=== PATIENT | female | born 1970 ===

== ENCOUNTER 2020-06-29 05:40 | Day surgery (SDC) | payer OTHER ==
[~2020-06-29 05:40] MED LIST: ADDERALL XR 2020 MG PO
== END 2020-06-29 10:40 | disposition home or self-care (01) ==
LOC: CIR.AMB 05:40
PROVIDERS: ATTEND Obstetrics & Gynecology Gynecologic Oncology
DX: D06.7 Carcinoma in situ of other parts of cervix (principal); Z20.822 Contact with and (suspected) exposure to COVID-19